=== PATIENT | female | born 1965 | race American Indian/Alaskan Native ===

== ENCOUNTER 2017-03-07 21:12 | Emergency (ER) | payer BC, OTHER ==
[2017-03-07] MEDS ORDERED: XYLOCAINE 2%/EPI 1:100,000 INFILTRATI ONE (22:37)
[2017-03-07] MEDS ORDERED: BOOSTRIX IM ONE (22:38)
[2017-03-07] MEDS ORDERED: TYLENOL PO ONE (22:38)
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
[2017-03-07] MEDS ORDERED: LIDOCAINE VISCOUS 2% PO ONE (22:54)
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
[2017-03-08 01:06] VITALS: BP 149/63
== END 2017-03-08 01:03 | disposition home or self-care (01) ==
LOC: ED 21:12
DX: S61.511A Laceration without foreign body of right wrist, initial encounter (principal); S01.512A Laceration without foreign body of oral cavity, initial encounter; F17.210 Nicotine dependence, cigarettes, uncomplicated; Z88.6 Allergy status to analgesic agent; X99.1XXA Assault by knife, initial encounter; Y93.89 Activity, other specified; Y92.89 Other specified places as the place of occurrence of the external cause; Y99.8 Other external cause status
CPT/HCPCS: 70355; 90471; 90715; 99284